=== PATIENT | female | born 1950 | race Two or more races ===

== ENCOUNTER 2017-05-01 08:13 | Day surgery (SDC) | payer MEDICARE, BC ==
[~2017-05-01] VITALS: Ht 160 cm; Wt 53.5 kg
[2017-05-01] VITALS (8 sets, daily range): BP systolic 93–114; BP diastolic 68–78
[~2017-05-01 08:13] MED LIST: LR 1000ml 1,000 ML IVLG SCH
[2017-05-01] MEDS ORDERED: LOVASTATIN20 MG ORAL (08:35)
--- NOTE | 2017-05-01 08:42 | Short Stay Surgery H&P ---
History of Present Illness History of Present Illness Chief Complaint Dysphagia,abdominal pain, screening colon. HPI Keyana Morales is a 67 year old female who was admitted on for Colon Screening,Abdominal Pain Patient History Allergies: Coded Allergies: No Known Allergies (Unverified , 04/30/17) PAST MEDICAL HISTORY: (1) Hyperlipidemia Past Surgeries: Social History: Medication History Scheduled Lovastatin (Lovastatin), 20 MG ORAL BEDTIME, (Reported) Review of Systems Cardiovascular: Reports: no symptoms Respiratory: Reports: no symptoms Skeletal: Reports: no symptoms Gastrointestinal: Reports: gastro esophageal reflux disease Genitourinary: Reports: no symptoms Neurologic: Reports: no symptoms Endocrine: Reports: no symptoms Hematologic: Reports: no symptoms Physical Exam Vital Signs Last Vital Signs Date Time Temp Pulse Resp B/P Pulse Ox O2 Delivery O2 Flow Rate FiO2 05/01/17 08:33 97.2 74 17 107/68 94 Room Air Skin: normal HENT: normal Heart: normal Lungs: normal Abdomen: normal Extremities: normal Genitourinary: normal Plan Plan of Care UGI endoscopy and colonoscopy. Preop Interventions None. Summary of Findings See the reports. Final Diagnosis: Attestation Are the patient's medical conditions optimized for surgery? Attestation Response: yes GIULIANO ONEAL May 01, 2017 08:42
--- NOTE | 2017-05-01 08:43 | Pre-Procedure Note/Attestation ---
Pre-Procedure Note/Attestation Complete Prior to Procedure Planned Procedure: left Procedure Narrative: Endoscopic exam of the upper and the lower GI tract. Indications for Procedure Pre-Operative Diagnosis: R/O peptic ulcer/ Colon cancer. Attestation I attest that I discussed the nature of the procedure; its benefits; risks and complications; and alternatives (and the risks and benefits of such alternatives ), prior to the procedure, with the patient (or the patient's legal digital media representative). I attest that, if there was a reasonable possibility of needing a blood transfusion, the patient (or the patient's legal digital media representative) was given the [place] [employer] standardized written summary, pursuant to the Ramon Daniella Blood Safety Act ([place] Health and Safety Code # 1645, as amended). I attest that I re-evaluated the patient just prior to the surgery and that there has been no change in the patient's H&P, except as documented below: JMSAID May 01, 2017 08:43
[2017-05-01] MEDS ORDERED: Lidocaine 1% MPF 10mg/ml 5ml ONE (09:00)
[2017-05-01] MEDS ORDERED: LR 1000ml ONE (09:00)
[2017-05-01] MEDS ORDERED: Propofol 10mg/ml 20ml IV ONE (09:00)
--- NOTE | 2017-05-01 09:25 | Endoscopy Procedure Note ---
Endoscopy Procedure Note Indication for Procedure: Abdominal pains, Screening colon/dysphagia. Procedures Performed: EGD - Exudative small patches in duodenum biosped and no ulcers seen, otherwise normal upper GI endoscopy. Biopsies also done from second portion of doudenum and gastric body., colonoscopy - Grade II internal hemorrhoids with highly redundant left colon; otherwise normal total colonoscopy. Specimen: yes Pt Tolerated Procedure Well: Yes Estimated Blood Loss: none Anesthesiologist: Dr. Mckinnon Anesthesia: moderate sedation Medication Given: see anesthesia record Implant(s) used?: No 50 yrs or older w/o bx or poly: Yes 10yrs. F/U not recommended: Yes If not recommended, why?: 10 yrs. F/U needed: Yes Med reason:<3 yrs.: System Reason:<3 yrs.: Last colonoscopy >= to 3yrs: Yes GIULIANO ONEAL May 01, 2017 09:25
--- NOTE | 2017-05-01 09:26 | Discharge Instructions ---
Discharge Instructions Discharge Instructions Follow up with: Visit the doctor in the office after two weeks. For Congestive Heart Failure Reminder Report to your physician any weight gain of 5 pounds or more in one week. JM,GIULIANO May 01, 2017 09:26
--- NOTE | 2017-05-01 09:39 | Immediate Post-Op Evaluation ---
Immediate Post-Op Evalulation Immediate Post-Op Evalulation Procedure: egd, colonoscopy Date of Evaluation: May 01, 2017 Time of Evaluation: 09:30 IV Fluids: 500 Blood Pressure Systolic: 100 Blood Pressure Diastolic: 70 Pulse Rate: 70 Respiratory Rate: 14 O2 Sat by Pulse Oximetry: 99 Temperature (Fahrenheit): 97.0 Nausea: No Vomiting: No Complications none Patient Status: awake, reacts, patent Hydration Status: adequate Drug: none JOSÉ MIGUEL BOWMAN CRNA May 01, 2017 09:39
--- NOTE | 2017-05-01 09:43 | Anethesia Preoperative Eval ---
Anesthesia Pre-op PMH/ROS General Date of Evaluation: May 01, 2017 Time of Evaluation: 09:41 Anesthesiologist: emily ASA Score: ASA 1 Mallampati Score Class I : Soft palate, uvula, fauces, pillars visible Class II: Soft palate, uvula, fauces visible Class III: Soft palate, base of uvula visible Class IV: Only hard plate visible Mallampati Classification: Class I Surgeon: Camilo Diagnosis: screening Surgical Procedure: EGD/Colonoscopy Anesthesia History: none Social History: current smoker Family History: no anesthesia problems Allergies: Coded Allergies: No Known Allergies (Unverified , 04/30/17) Medications: see eMAR Past Medical History Cardiovascular: Denies: CAD, HTN, [place], arrhythmia, other, valve dz Pulmonary: Denies: COPD, MATI, asthma, other Gastrointestinal/Genitourinary: Denies: CRI, ESRD, GERD, other Neurologic/Psychiatric: Denies: CVA, TIA, dementia, depression/anxiety, other Endocrine: Denies: DM, hypothyroidism, other, steroids Hematology/Immune: Denies: DVT, anemia, bleeding disorder, other Musculoskeletal/Integumentary: Denies: DDD, DJD, OA, RA, edema, other Anesthesia Pre-op Phys. Exam Physician Exam Last Vital Signs Date Time Temp Pulse Resp B/P Pulse Ox O2 Delivery O2 Flow Rate FiO2 05/01/17 09:39 70 14 99 05/01/17 08:33 97.2 107/68 Room Air Constitutional: NAD Neurologic: CN 2-12 intact Cardiovascular: RRR Respiratory: CTA Gastrointestinal: S/NT/ND Airway Exam Mallampati Score: Class II MO: full ROM: full Dentures: no lower, no upper Anesthesia Pre-op A/P Studies Pre-op Studies: EKG - Sr Risk Assessment & Plan Plan: mac Status Change Before Surgery: No Pre-Antibiotics Drug: none JOSÉ MIGUEL BOWMAN CRNA May 01, 2017 09:43
--- NOTE | 2017-05-01 09:56 | 48 Hour Post Anesthesia Eval ---
Post Anesthesia Evaluation Procedure: egd, colonoscopy Date of Evaluation: May 01, 2017 Time of Evaluation: 09:55 Blood Pressure Systolic: 112 0: 66 Pulse Rate: 70 Respiratory Rate: 14 O2 Sat by Pulse Oximetry: 99 Airway: patent Nausea: No Vomiting: No Hydration Status: adequate Mental Status/LOC: patient returned to baseline Post-Anesthesia Complications: none Follow-up care needed: N/A JOSÉ MIGUEL BOWMAN CRNA May 01, 2017 09:56
--- NOTE | 2017-05-01 12:45 | Operative Note - Dictated ---
DATE OF OPERATION: 05/01/2017 REFERRING PHYSICIAN: Won Mejias M.D. SURGEON: Tootie Marie M.D. PROCEDURE: Esophagogastroduodenoscopy with biopsy. PREOPERATIVE DIAGNOSES: 1. Abdominal pain. 2. History of gastroesophageal reflux. POSTOPERATIVE DIAGNOSES: Incidental findings of exudative process in the duodenal bulb without any evidence of inflammatory process or ulceration biopsied. Otherwise, complete normal upper gastrointestinal endoscopy. Biopsy was also done from the second portion of duodenum and gastric cavity. MEDICATION USED: Per Dr. Mckinnon. INSTRUMENT: GIF Olympus upper gastrointestinal video endoscope. DESCRIPTION OF PROCEDURE: The patient after arriving in the endoscopy unit, was told about risks and benefits of the procedure, which she accepted and signed the informed consent. She was then put on the left lateral decubitus position. After adequate IV sedation, the scope was gently passed through the cricopharyngeal area, was lodged into the upper esophagus, gradually advanced towards gastroesophageal junction. The entire length of the esophagus looked normal and there was no any evidence of inflammatory process, ulceration, stricture, etc. No varices. GE junction also looked normal without George's or hiatal hernia. At this time, the scope was advanced into the stomach. Gastric cavity was distended and the areas of the fundus and the body and the antrum were examined in an brick cleaner fashion, which revealed normal findings without any mucosal abnormality. No ulcers or inflammatory process, tumors, polyps, etc., found. At this time, the scope was passed through the pylorus. Upon entering into the duodenal bulb, one could see evidence of exudative process adhering to the duodenal mucosa mostly over the anterior wall and the apex could not be washed away. There was no ulcerations, inflammatory process, or stricture, etc. However, one biopsy from this area was obtained and subsequently scope was passed through the second portion of duodenum, which looked normal and another random biopsy from this area was also obtained. No pathology was found. Finally, the scope was pulled back into the stomach. A retroflexion maneuver was applied and the area of the gastroesophageal junction was examined in a closer fashion, which revealed normal findings. Finally, the scope was pulled out and the procedure was terminated. The patient tolerated the procedure well. Said Bessie Marie DR: PATRICK JOB#: [id number] CC: Won Mejias M.D.; Fax#: [phone]
--- NOTE | 2017-05-01 13:15 | Operative Note - Dictated ---
DATE OF OPERATION: 05/01/2017 REFERRING PHYSICIAN: Won Mejias M.D. SURGEON: Tootie Marie M.D. PROCEDURE: Total colonoscopy. PREOPERATIVE DIAGNOSES: History of rectal bleeding, abdominal pain, and screening colonoscopy. POSTOPERATIVE DIAGNOSES: Grade 2 internal hemorrhoids, otherwise completely normal total colonoscopy with high redundancy of the left colon. MEDICATION USED: Per Dr. Mckinnon, anesthesiologist. INSTRUMENT: GIF Olympus videocolonoscope. DESCRIPTION OF PROCEDURE: The patient after arriving in the endoscopy unit, was told about risks and benefits of the procedure, which she accepted and signed the informed consent. She was then put in the left lateral decubitus position. After adequate IV sedation, the scope was gently passed the anal area, which revealed evidence of minimal extrusion of internal hemorrhoids, consistent with grade 2 internal hemorrhoids. However, this area was not friable. The scope was passed into the rectum. A retroflexion maneuver was applied and the presence of hemorrhoids was confirmed and there was no any pathology in the rectum altogether. Finally, the scope was passed through highly redundant left colon reaching to the splenic flexure. From there, it was guided into the transverse colon and all the way to the right colon up to the base of the cecum. All these areas, however, remained to be completely normal. There is no evidence of polyps, tumors, strictures, bleeding site, hemangioma etc. The colon cleanup was adequate and finally within 7 minutes, the scope was gradually pulled out and re-evaluation of the colon did not reveal any other pathology rather than what is stated earlier. The patient tolerated the procedure well and left the endoscopy room in a good condition. Tootie Marie M.D. DR: BRAD JOB#: [id number] CC: Won Mejias M.D.; Fax#: [phone]
== END 2017-05-01 11:05 | disposition home or self-care (01) ==
LOC: GAS 08:13
DX: Z12.11 Encounter for screening for malignant neoplasm of colon (principal); K64.8 Other hemorrhoids; Q43.8 Other specified congenital malformations of intestine; K29.50 Unspecified chronic gastritis without bleeding; K29.80 Duodenitis without bleeding; R13.10 Dysphagia, unspecified; E78.5 Hyperlipidemia, unspecified; K21.9 Gastro-esophageal reflux disease without esophagitis; F17.200 Nicotine dependence, unspecified, uncomplicated
CPT/HCPCS: 43239; G0121; J2704; J7120; 94003; 94150